=== PATIENT | female | born 1975 | race Caucasian/White ===

== ENCOUNTER 2024-04-19 13:33 | Outpatient (REF) | payer OTHER, SELFPAY | END 2024-04-19 13:34 | disposition home or self-care (01) | LOC: HO.LNP 13:33 | PROVIDERS: Visit Provider Physician Assistant | DX: H60.393 Other infective otitis externa, bilateral (principal) | CPT/HCPCS: 69209; 87102; 87106; 87107 ==

== ENCOUNTER 2024-04-19 13:33 | Outpatient (AMB) | payer OTHER, SELFPAY ==
--- NOTE | 2024-04-19 13:39 | MHC.OFFWIV ---
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 Patient Tobacco Use Status: Never used Tobacco Allergies No Known Allergies [No Known Allergies*] Allergy (Verified 04/19/24 13:40) Do you need a note to return to daycare/school/sports/work: No HPI HPI Comments History of Present Illness Details Patient is a 49-year-old female complaining of bilateral ear pain, reduced hearing and ear fullness as well as itchiness. She tells me she went to her primary care doctor who keeps prescribing drops but she is using them as prescribed in her symptoms are not going away. She denies any fevers. She has been dealing with this for the last few weeks. [facility], [facility] Social History Patient Tobacco Use Status: Never used Tobacco Review of Systems Const All systems reviewed & are unremarkable except as noted in HPI and below Physical Exam Vital Signs: Last Vital Signs Pulse 97 04/19/24 13:40 BP 128/80 04/19/24 13:40 Pulse Ox 97 04/19/24 13:40 Oxygen Delivery Method Room Air 04/19/24 13:40 BMI result Body Mass Index 29.8 Const General: cooperative, healthy appearing, comfortable and no acute distress Orientation/consciousness: patient oriented x3 HEENT Head: Yes normal to inspection, Yes No palpable skull fracture present and Yes normocephalic Ears: hearing grossly normal bilaterally, external ears normal, EAC's normal, mastoids normal (no TTP) bilaterally, Abnormal EAC present (Right:purulence w/ortiz/black speck, Left:dark ortiz material w/black specs) EAC tenderness and otic discharge (see above) and unable to visualize TM bilaterally General nose exam: Normal external nose present Face and sinus: Yes normal facial exam Mouth: Normal oral and palatal mucosa present Teeth and gingiva: dentition normal Throat: Yes posterior oropharynx normal Eyes General: appearance normal, both eyes and all related structures Neck Neck: Yes normal visual inspection, Yes full ROM, Yes no lymphadenopathy, Yes no meningeal signs, Yes trachea midline and Yes supple Resp Effort & Inspection: normal respiratory effort and able to speak in complete sentences Skin General skin exam: no rashes or lesions noted Neuro General: patient oriented x3 and no meningeal signs Office Procedures Cerumen Removal From which ear canal was the cerumen removed: right Removal: irrigation Notes: patient tolerated procedure well and no complications [id number] Irrigation/Lavage Assessment & Plan Assessment & Plan (1) Otitis externa: Code(s): H60.90 - Unspecified otitis externa, unspecified ear Qualifiers: Otitis externa type: other infective Chronicity: acute Laterality: bilateral Qualified Code(s): H60.393 - Other infective otitis externa, bilateral Plan: Sent eardrops, a prednisone taper, daily fluconazole for 1 week, recommended continuing Zyrtec and Flonase. Sent fungal culture of each ear Plan See above Orders: Orders Fungus Cult Other Today H60.90 - Unspecified otitis externa, unspecified ear Fungus Cult Other Today H60.90 - Unspecified otitis externa, unspecified ear Medications: New hydrocortisone-acetic acid 1-2 % 4 drps otic (ears) QID 10 mL 1RF fluconazole (Diflucan) 100 mg PO DAILY 7 tabs 0RF prednisone On days 1-3, take 2 tablets with breakfast. On days 4-6 take 1 tablet with breakfast, on days 7-10 take 0.5 tablet with breakfast 20 mg PO DAILY 11 tabs 0RF Coding Level of Care Code New Pt Level 4 (59275) Diagnoses Other infective acute otitis externa of both ears H60.393 Otitis externa type: other infective Chronicity: acute Laterality: bilateral CPT Codes Office Procedure - CPT: 62481-Swk Irrigation/Lavage ([id number])
[2024-04-19 13:40] VITALS: BP 128/80; PULSE 97; O2SAT 97; BMI 29.8
== END 2024-04-19 14:56 | disposition home or self-care (01) ==
PROVIDERS: Visit Provider Physician Assistant
DX: H60.393 Other infective otitis externa, bilateral (principal)

== ENCOUNTER 2025-01-29 15:40 | Emergency (ER) | payer OTHER, SELFPAY ==
[2025-01-29 16:02] VITALS: BP 182/95; PULSE 90; RESP 18; TEMP 37; O2SAT 98; BMI 27.5
--- NOTE | 2025-01-29 16:04 | ED.GENADULT ---
HPI - General Adult General Chief complaint: General Medical Stated complaint: bruising on arms & legs Time Seen by Provider: 01/29/25 22:19 Source: patient Mode of arrival: ambulatory Limitations: no limitations History of Present Illness ED Provider: Dr. Shellie Justin HPI narrative: 49-year-old female with no significant past medical history presenting with multiple bruises that she noted on her arms and legs that have been popping up more frequently over the last several days. Patient admits that she has a history of unexplained bruising that had been worked up by her primary care doctor several months ago. Admits that she has not had much notable bruising since that time however over the last several days she has noted several large bruises that have concerned her. One is on her left buttock and thigh that popped up yesterday. No specific injury to that area. She denies bleeding elsewhere including hematemesis, hematochezia or hematuria. She does not take blood thinners but does drink alcohol daily. Otherwise denies associated fevers or chills, chest pain, difficulty breathing, body aches, abdominal pain, nausea or vomiting, bowel changes or urinary complaints. Has been feeling well over the course of this bruising. Went to [place] on a cruise and had no illness during that time. Denies any mosquito or tick bites during her travels. No family history of hemophilia. Related Data Home Medications ?Medication ?Instructions ?Recorded ?Confirmed cetirizine 10 mg tablet (Zyrtec) 10 mg PO DAILY PRN 04/19/24 Previous Rx's ?Medication ?Instructions ?Recorded fluconazole 100 mg tablet 100 mg PO DAILY #7 tabs 04/19/24 (Diflucan) hydrocortisone-acetic acid 1 %-2 % 4 drp otic (ears) QID #10 mL 04/19/24 ear drops prednisone 20 mg tablet 20 mg PO DAILY #11 tabs 04/19/24 Allergies Allergy/AdvReac Type Severity Reaction Status Date / Time No Known Allergies (No Known Allergy Verified 01/29/25 16:06 Allergies*) Review of Systems Review of Systems: As per HPI, full review of systems performed and negative but for the above mentioned pertinent positives and negatives. PMFSH Past Medical History PMF Narrative: Hysterectomy, daily alcohol use Social History Social History Patient Tobacco Use Status: Never used Tobacco Advance Directives: No Advance Directives Information Provided: No Physical Exam ED Exam Exam: GENERAL: Well-Appearing, conversant, no acute distress. SKIN: Normal skin color for ethnicity, warm, dry, several areas of bruising noted on the bilateral upper and lower extremities, no petechiae, no purpura. HEENT: Normocephalic, atraumatic, no stridor, posterior oropharynx nonerythematous, dentition intact, EOMI. NECK: Soft, supple, full ROM, midline structures nontender, no step-offs, no deformities, no lymphadenopathy. CHEST: Heart regular rate and rhythm, no murmurs, symmetric chest rise and fall. PULMONARY: Clear to auscultation bilaterally, no labored breathing, no wheezes/rhales/rhonchi. ABDOMINAL: Soft, nondistended, nontender, positive bowel sounds in all quadrants. : Deferred. MUSCULOSKELETAL: Normal tone, full range of motion, no deformities, no peripheral edema. NEURO: Alert and oriented x3, CN II through XII intact, equal strength and sensation bilateral upper and lower extremities, no focal neurologic deficits. PSYCHIATRIC: Normal affect, fluid speech, good eye contact and appropriate demeanor. Vital Signs: Vital Signs - 24 hr 01/29/25 16:02 Temperature 98.6 F Pulse Rate 90 Respiratory Rate 18 Blood Pressure 182/95 H Pulse Oximetry 98 Oxygen Delivery Method Room Air BMI result Body Mass Index 27.5 Course Course Course Narrative: This is a Rapid Medical Examination (RME) performed by Daiana Naranjo PA-C in triage. Full HPI, ROS, assessment and treatment plan per primary provider in the Main ED. Hx: 49 yo F here for eval of multiple areas of bruising to b/l UE and LEs starting yesterday. no known medical conditions. no thinners. reports recently returning from a cruise to [facility] 3 days ago. states she did not get off the boat during the cruise. no known insect bites. no fevers. no black or bloody stools. PE/vitals: Plan: labs, coags, dengue testing Medical Decision Making Medical Decision Making MDM Narrative: 49-year-old female with no significant past medical history presenting with bruising that is been ongoing for months. Differential diagnosis includes coagulopathy, hemophilia, infectious process, liver dysfunction, bone marrow dysfunction, thrombocytopenia, among others. Physical exam is reassuring. She has tenderness overlying her bruising but no other signs of trauma. She appears well with normal vital signs. Blood work is also reassuring. No evidence of thrombocytopenia, anemia, liver dysfunction, elevated INR. I had an extensive discussion with her regarding cessation of alcohol use to see if that helps her bleeding as well as referral to Hematology. She should follow up with primary care as an outpatient. Discharged home in stable condition. Differential Diagnosis Differential Diagnoses: The differential diagnosis associated with the presentation includes (As above) Admission/Observation Consideration of admission/observation: Escalation of care including admission/observation considered Lab Data MDM Lab Attestation statement: I reviewed the patient's lab results. 01/29/25 17:36 01/29/25 17:36 Labs: Lab Results 01/29/25 Range/Units 17:36 WBC 6.6 (4.8-10.8) X10*3/uL RBC 4.40 (4.20-5.50) X10*6/uL Hgb 13.6 (12.0-16.0) g/dl Hct 40.1 (37.0-47.0) % MCV 91.1 (80.0-98.0) fL MCH 30.9 (27.0-33.0) pg MCHC 33.9 (31.0-35.0) g/dl RDW 13.2 (11.0-16.0) % Plt Count 220 (160-400) X10*3/uL MPV 9.8 (9.4-12.3) fL Immature Gran % (Auto) 0.3 (0.0-0.4) % Neut % (Auto) 57.0 (45-73) % Lymph % (Auto) 32.2 (20-40) % [place] % (Auto) 7.9 (2-11) % Eos % (Auto) 2.0 (0-4) % Baso % (Auto) 0.6 (0-2) % Lymph # (Auto) 2.1 (1.2-4.9) X10*3/uL [place] # (Auto) 0.5 (0.1-1.2) X10*3/uL Eos # (Auto) 0.1 (0.0-0.4) X10*3/uL Baso # (Auto) 0.0 (0.0-0.2) X10*3/uL Abs Immat Gran (auto) 0.02 (0.00-0.03) X10*3/uL Absolute Neuts (auto) 3.7 (2.0-8.3) x10*3/uL Absolute Nucleated RBC 0.000 (0.0-0.012) X10*3/uL Nucleated RBC % (auto) 0.0 (0.0-0.2) /100WBC PT 10.9 (10.9-12.4) SEC INR 1.0 (0.9-1.1) APTT 29.2 (26.7-34.1) SEC Sodium 141 (135-145) mmol/L Potassium 3.9 (3.3-5.1) mmol/L Chloride 105 (96-108) mmol/L Carbon Dioxide 29 (22-29) mmol/L Anion Gap 11 L (12-20) BUN 14 (9-16) mg/dL Creatinine 0.75 (0.5-1.4) mg/dL Estim Creat Clear Calc 93.1 Estimated GFR > 60 Random Glucose 111 (60-115) mg/dL Calcium 9.2 (8.4-10.2) mg/dL Magnesium 2.0 (1.6-2.6) mg/dL Total Bilirubin 0.4 (0.0-1.0) mg/dL AST 26 (5-31) U/L ALT 29 (0-31) U/L Alkaline Phosphatase 97 (39-117) U/L Total Protein 7.4 (6.5-8.0) g/dL Albumin 4.7 (3.5-5.0) g/dL Lipase 27 (8-78) U/L Dengue Fever IgG Ab 0.65 Dengue Fever IgM Ab 0.86 Discharge Plan Discharge Clinical Impression: Bruises easily, Generalized headaches Patient Disposition: Home, Self-Care Instructions: Ecchymosis (ED) Additional Instructions: Thankfully your blood work today is very reassuring. There is no evidence of coagulopathy based on your blood work. It may help to stop drinking for a brief period of time to see if this helps with your bruising. Alcohol Effexor liver which is the main supervisor customer records division of clotting factors. If you develop any new or worsening symptoms including: Worsening bleeding, fevers greater than 100?, bone pain, inability to tolerate food or drink you should return to the hospital immediately. Otherwise, follow up with your primary care doctor as soon as possible. You may also benefit from seeing a rehabilitation services director. Referral provided below. Prescriptions: No Action cetirizine [Zyrtec] 10 mg tablet 10 mg PO DAILY PRN hydrocortisone-acetic acid 1-2 % drops 4 drp otic (ears) QID Qty: 10 1RF prednisone 20 mg tablet 20 mg PO DAILY Qty: 11 0RF Rx Instructions: On days 1-3, take 2 tablets with breakfast. On days 4-6 take 1 tablet with breakfast, on days 7-10 take 0.5 tablet with breakfast fluconazole [Diflucan] 100 mg tablet 100 mg PO DAILY Qty: 7 0RF Referrals: Janet Archer MD [Physician, Hematology & Oncology] Referral Note: unexplained bruising Clinical Impression: Bruises easily Interventions: ED Discharge Assessment Last Done: 01/29/25 23:35 Discharge Date/Time: 01/29/25 23:35 Print Language: Bulgarian
[2025-01-29 17:41] LABS: MANUAL DIFF FLAG NO
[2025-01-29 17:43] LABS: Hematocrit 40.1 % (37.0-47.0); Hemoglobin 13.6 g/dl (12.0-16.0); Imm Gran Abs Auto 0.02 X10*3/uL (0.00-0.03); Imm Gran Pct Auto 0.3 % (0.0-0.4); Lymphocytes Absolute Auto 2.1 X10*3/uL (1.2-4.9); Mean Corpuscular HGB Conc 33.9 g/dl (31.0-35.0); Mean Corpuscular Hemoglobin 30.9 pg (27.0-33.0); Mean Corpuscular Volume 91.1 fL (80.0-98.0); NRBC Abs Auto 0.000 X10*3/uL (0.0-0.012); NRBC Pct Auto 0.0 /100WBC (0.0-0.2); Platelet Count 220 X10*3/uL (160-400); Red Blood Count 4.40 X10*6/uL (4.20-5.50); White Blood Count 6.6 X10*3/uL (4.8-10.8)
[2025-01-29 17:49] LABS: INTERNATIONAL NORM RATIO 1.0 (0.9-1.1); Prothrombin Time 10.9 SEC (10.9-12.4)
[2025-01-29 17:51] LABS: Partial Thromboplastin Time 29.2 SEC (26.7-34.1)
[2025-01-29 17:57] LABS: Alanine Aminotransferase 29 U/L (0-31); Albumin Level 4.7 g/dL (3.5-5.0); Alkaline Phosphatase 97 U/L (39-117); Anion Gap 11 (12-20); Aspartate Amino Transferase 26 U/L (5-31); Blood Urea Nitrogen 14 mg/dL (9-16); Calcium 9.2 mg/dL (8.4-10.2); Carbon Dioxide 29 mmol/L (22-29); Chloride 105 mmol/L (96-108); Creatinine Clr Calc Pharmacy 93.1; Estimated Glomerular Filt Rate > 60; Lipase 27 U/L (8-78); Magnesium 2.0 mg/dL (1.6-2.6); Potassium 3.9 mmol/L (3.3-5.1); Sodium 141 mmol/L (135-145); Total Protein 7.4 g/dL (6.5-8.0)
[2025-01-29 23:32] VITALS: BP 137/78; PULSE 67; RESP 16; TEMP 36.3; O2SAT 98
[2025-01-29 23:35] VITALS: BP 137/78; PULSE 67; RESP 16; TEMP 36.3; O2SAT 98
== END 2025-01-29 23:35 | disposition home or self-care (01) ==
PROVIDERS: Physician Assistant Medical; Emergency Provider Emergency Medicine; PCP Physician Assistant
DX: R23.3 Spontaneous ecchymoses (principal); R51.9 Headache, unspecified
CPT/HCPCS: 36415; 80053; 83690; 83735; 85025; 85610; 85730; 99283